=== PATIENT | female | born 1955 ===

== ENCOUNTER 2021-07-22 13:14 | Outpatient (CLI) | payer BC ==
--- NOTE | 2021-07-22 11:16 | XRAY Report ---
PROCEDURE: Chest 2 View X-Ray INDICATIONS: WHEEZING COUGH TECHNIQUE: 2 view(s) of the chest. COMPARISON: None. FINDINGS: Surgical changes and devices: None. Lungs and pleura: No pleural effusions or pneumothorax. Lungs are clear. Mediastinum: Mediastinal contours are normal. Heart size is normal. Bones and chest wall: No suspicious bony abnormalities. Soft tissues appear unremarkable. IMPRESSION: No acute pulmonary process. Reviewed by: Mignon Villegas MD on 07/22/2021 11:15 AM PDT Approved by: Mignon Villegas MD on 07/22/2021 11:15 AM PDT Station ID: [id number]
== END 2021-07-22 13:15 ==
LOC: DI.S 13:14
PROVIDERS: ATTEND Physician Assistant Medical
DX: R06.2 Wheezing (principal); R05.9 Cough, unspecified